=== PATIENT | female | born 1950 | race Caucasian/White ===

== ENCOUNTER 2017-08-23 14:07 | Emergency (ER) | payer BC ==
[2017-08-23 14:48] LABS: BASOPHILS 0.5 % (0-2); EOSINOPHILS 0.7 % (0-7); HEMATOCRIT 35.7 % (36.0-48.0); HEMOGLOBIN 12.1 g/dL (12-16); LYMPHOCYTES 33.4 % (15-50); MCH 31.5 pg (26.0-34.0); MCHC 33.9 g/dL (31.0-37.0); MEAN PLATELET VOLUME 9.5 fL (7.4-10.4); MONOCYTES 14.2 % (2-11); NEUTROPHILS 51.2 % (40-80); PLATELET COUNT 226 10x3/uL (130-400); RBC 3.84 10x6/uL (4.00-5.40); RDW 12.1 % (11.5-14.5)
[2017-08-23 14:58] LABS: APTT 31.6 SECONDS (22.8-39.4); INR 0.97 (0.85-1.17); PROTIME 12.5 SECONDS (11.6-15.0)
[2017-08-23 15:05] LABS: ALBUMIN 3.7 g/dL (3.4-5.0); ALKALINE PHOSPHATASE 53 U/L (46-116); ALT (SGPT) 32 U/L (10-68); BILIRUBIN - TOTAL 0.19 mg/dL (0.2-1.3); CALC OSMOLALITY 283 mosm/kg (275-300); CALCIUM 8.6 mg/dL (8.5-10.1); CARBON DIOXIDE 30.9 mmol/L (21.0-32.0); CHLORIDE - SERUM 104 mmol/L (98-107); CREATININE - SERUM 0.6 mg/dL (0.6-1.3); GLUCOSE 107 mg/dL (74-106); POTASSIUM - SERUM 3.6 mmol/L (3.5-5.1); PROTEIN - SERUM 7.1 g/dL (6.4-8.2); SODIUM 141 mmol/L (136-145); UREA NITROGEN 22 mg/dL (7-18); eGFR NON AFRICAN AMERICAN > 90 mL/min (90-120)
[2017-08-23 15:21] LABS: CKMB 0.5 U/L (0.0-3.6); CREATINE KINASE 50 UL (21-215)
[2017-08-23 15:24] LABS: TROPONIN-I < 0.017 ng/mL (0.000-0.060)
== END 2017-08-23 16:00 | disposition home or self-care (01) ==
LOC: D.ER 14:07
PROVIDERS: Family Medicine
DX: G45.4 Transient global amnesia (principal); I49.3 Ventricular premature depolarization